=== PATIENT | male | born 1980 | race Caucasian/White ===

== ENCOUNTER 2016-10-30 05:43 | Emergency (ER) | payer SELFPAY ==
[~2016-10-30] VITALS: Ht 182.9 cm; Wt 137.7 kg
[~2016-10-30 05:43] MED LIST: HYDROCODONE-AP1 EAC8 PO
[2016-10-30 06:02] LABS: POINT-OF-CARE METER ID UU13113778
[2016-10-30 06:57] LABS: EOSINOPHIL COUNT 0.1 K/uL (0-0.3); HEMATOCRIT 45.4 % (38.0-50.0); IMMATURE GRANULOCYTE (%) 0.4 % (0.0-0.7); INSTRUMENT ABS NEUTROPHIL CT 3.8 K/uL; LYMPHOCYTE COUNT 0.8 K/uL (1.0-2.8); MCH 30.4 PG (29.0-34.0); MCHC 34.1 G/DL (30.0-36.0); MEAN PLAT.VOLUME 9.4 uM^3 (9.0-12.4); MONOCYTE (%) 6.9 % (3-12); MONOCYTE COUNT 0.4 K/uL (0-0.8); NEUTROPHIL (%) 74.7 % (45-76); NEUTROPHIL COUNT 3.8 K/uL (1.8-6.4); PLATELET COUNT 214 K/uL (156-360); RBC DIS.WIDTH-CV 11.8 % (11.8-14.6); RBC DIS.WIDTH-SD 37.7 % (39-53); WHITE BLOOD COUNT 5.1 K/uL (4.1-10.2)
[2016-10-30 07:05] LABS: INTER. NORMALIZED RATIO 0.9; PROTHROMBIN TIME 10.3 SEC (10.2-12.9)
[2016-10-30 07:07] LABS: D-DIMER ELISA < 150.00 ng/mLDDU (<230)
[2016-10-30 07:08] LABS: PTT 30.4 SEC (25-37)
[2016-10-30 07:23] LABS: TROP-I INTERPRETATION NEGATIVE; TROPONIN-I < 0.01 ng/mL (0.0-0.30)
[2016-10-30 07:35] LABS: ALKALINE PHOSPHATASE 48 IU/L (3-129); ANION GAP 9 MEQ/L (2-14); CHLORIDE 103 MEQ/L (99-109); GFR ESTIMATE (CALCULATED) > 59 mL/min/; GLUCOSE 183 mg/dL (70-99); POTASSIUM 4.3 MEQ/L (3.7-5.4); SAMPLE HEMOLYSIS CHECK 0; SAMPLE ICTERIC CHECK 0; SAMPLE LIPEMIA CHECK 0; SODIUM 138 MEQ/L (136-147); TOTAL BILIRUBIN 0.5 MG/DL (0.0-1.0); UREA NITROGEN (BUN) 11 mg/dL (9-23)
[2016-10-30 09:54] VITALS: BP 141/94
== END 2016-10-30 10:01 | disposition home or self-care (01) ==
LOC: EME 05:43
PROVIDERS: Emergency Medicine
DX: R00.2 Palpitations (principal); R61 Generalized hyperhidrosis; Z95.0 Presence of cardiac pacemaker
CPT/HCPCS: 71010; 80053; 82948; 83880; 84484; 85025; 85379; 85610; 85730; 93005; 99281; 99284